=== PATIENT | female | born 1955 | race Caucasian/White ===

== ENCOUNTER 2020-06-08 10:10 | Emergency (ER) | payer OTHER ==
[2020-06-08 10:17] VITALS: BP 122/65; PULSE 56; TEMP 98.5; BMI 31.5
--- NOTE | 2020-06-08 11:07 | PDOC ---
History of Present Illness - General Chief Complaint: Pain Stated Complaint: SENT BY DOC Time Seen by Provider: 06/08/20 10:50 History Source: Patient Exam Limitations: No Limitations - History of Present Illness Initial Comments: 06/08/20 11:02 65-year-old female presents to the emergency room with complaints of continued right lower extremity discomfort for the past month. Patient denies any specific injury skin discoloration or sensory changes. Patient states has history of arthritis and has been taking Motrin with good effect for the past month. Patient decided go to her PCP yesterday had an x-ray and was told there was a fibular fracture and needed to go to the ER for medical attention. Patient denies worsening pain or radiation of pain but states due to low back pain she has been compensating causing her low back pain especially to the right lower back to increase in severity. Occurred: reports: other (1 month ) Severity: reports: mild Pain Location: reports: lower extremity Method of Injury: Yes: unknown Modifying Factors: improves with: None Associated Symptoms (Fall): trouble walking Past History - Travel History Traveled outside of the country in the last 30 days: No Close contact w/someone who was outside of country & ill: No - Medical History Allergies/Adverse Reactions: Allergies Allergy/AdvReac Type Severity Reaction Status Date / Time No Known Allergies Allergy Verified 10/08/16 10:06 Home Medications: Ambulatory Orders Aspirin [Aspirin EC] 81 mg PO DAILY 10/08/16 Docusate Sodium [Dok] 100 mg PO DAILY 10/08/16 Gabapentin [Neurontin] 300 mg PO Q8H 10/08/16 Hydroxychloroquine So4 [Plaquenil -] 200 mg PO DAILY 10/08/16 Lisinopril 5 mg PO DAILY 10/08/16 Mv-Min/Folic/Vit K/Lycop/Coq10 [Daily Multivitamin Capsule] 1 each PO DAILY 10/08/16 Omeprazole 20 mg PO DAILY 10/08/16 Anemia: No Asthma: No Cancer: No Cardiac Disorders: No CVA: No COPD: No CHF: No Dementia: No Diabetes: No GI Disorders: Yes Disorders: No HTN: Yes Hypercholesterolemia: No Liver Disease: No Seizures: No Thyroid Disease: No - Surgical History Abdominal Surgery: Yes (HERNIA) Appendectomy: Yes - Psycho-Social/Smoking History Patient Lives Alone: No Lives with/in: spouse/SO Smoking History: Never smoked Have you smoked in the past 12 months: No If you are a former smoker, when did you quit?: 2005 Information on smoking cessation initiated: No - Substance Abuse Hx (Audit-C & DAST Scrn) How often the patient has a drink containing alcohol: Never Score: In Men: 4 or > Positive; In Women: 3 or > Positive: 0 Screen Result (Pos requires Nsg. Audit-10AR): Negative Review of Systems - Review of Systems Able to Perform ROS?: No Is the patient limited Portuguese proficient: No Constitutional: No: Symptoms Reported Musculoskeletal: Yes: Joint Pain (rt ankle) Integumentary: No: Symptoms Reported Neurological: No: Tingling Hematologic/Lymphatic: No: Symptoms Reported *Physical Exam - Vital Signs Last Vital Signs Temp Pulse Resp BP Pulse Ox 98.5 F 56 L 17 122/65 99 06/08/20 10:12 06/08/20 10:12 06/08/20 10:12 06/08/20 10:12 06/08/20 10:12 - Physical Exam General Appearance: Yes: Nourished, Appropriately Dressed. No: Apparent Distress HEENT: negative: Pale Conjunctivae Neck: positive: Supple Respiratory/Chest: positive: Lungs Clear, Normal Breath Sounds. negative: Respiratory Distress, Accessory Muscle Use Cardiovascular: positive: Regular Rhythm, Regular Rate. negative: Murmur Gastrointestinal/Abdominal: positive: Soft. negative: Tenderness Extremity: positive: Tender (right lower extremity over the lateral aspect of malleolus) Integumentary: positive: Normal Color, Warm, Moist Neurologic: positive: Normal Mood/Affect Procedures - Splinting Splint Location: Right: Ankle Pre-Proc Neuro Vasc Exam: normal Hand-Made Type: orthoglass Splint Type: Yes: Sugar Tong, Posterior Post-Proc Neuro Vasc Exam: normal Noe Bandage: 4" Complications: No Good repositioning: Yes ED Treatment Course - RADIOLOGY Radiology Studies Ordered: Category Date Time Status LEG TIB/FIB-RIGHT [RAD] Stat Radiology 06/08/20 10:54 Ordered Medical Decision Making - Medical Decision Making 06/08/20 11:06 Chief complaint: Continue right lower extremity discomfort denies specific injury has history of arthritis and herniated disks of the lumbar spine. Exam: Patient with limited range of motion with flexion and dorsiflexion of the right ankle with point tenderness to the lateral aspect of right malleolus and extending proximately. Extremity warm 2+ pulses. Plan: X-ray to visualize specific injury/fracture 06/08/20 11:50 patient with noted nondisplaced right fibular shaft fracture. Area splinted with a sugar tong and posterior short leg. Patient able to use crutches and will receive referral to Dr. Hwang. Discharge - Discharge Information Problems reviewed: Yes Clinical Impression/Diagnosis: Fracture, fibula, shaft Condition: Good Disposition: HOME - Follow up/Referral Referrals: Prudencio Hwang MD [Staff Physician] - - Patient Discharge Instructions Patient Printed Discharge Instructions: Fibula Shaft Fracture Additional Instructions: Avoid placing weight onto the right lower extremity using your crutches as needed for ambulation. Elevate your leg when not ambulating. Follow-up with orthopedist take Motrin for discomfort - Post Discharge Activity
== END 2020-06-08 12:00 | disposition home or self-care (01) ==
LOC: JERFT 10:10
DX: S82.401A Unspecified fracture of shaft of right fibula, initial encounter for closed fracture (principal)
CPT/HCPCS: 73590-TC-RT-FY; 99283-25

== ENCOUNTER 2025-02-01 05:30 | Day surgery (SDC) | payer OTHER ==
[2025-01-30 10:49] VITALS: BMI 29.7
[2025-02-01] MEDS ORDERED: LIDOCAINE HCL 1%, 10 MG/ML (20ML VIAL) ONE (10:50)
[2025-02-01] MEDS ORDERED: MIDAZOLAM HCL 2 MG/2 ML SINGLE DOSE VIAL ONE (11:01)
[2025-02-01] MEDS: ceFAZolin SODIUM 1 GM VIAL IVPB ONE (11:10)
[2025-02-01] MEDS ORDERED: HYDROmorphone HCl 2 MG/ML VIAL ONE (11:29)
[2025-02-01 14:02] VITALS: TEMP 97
[2025-02-01] MEDS ORDERED: oxyCODONE HCL 5 MG TABLET ONE (14:03)
[2025-02-01] MEDS: oxyCODONE HCL 5 MG TABLET PO ONE (14:04)
[2025-02-01 15:11] VITALS: RESP 20
[2025-02-01 16:21] VITALS: BP 150/70; PULSE 64
== END 2025-02-01 16:21 | disposition home or self-care (01) ==
LOC: JASU-SURG 05:30
PROVIDERS: ATTEND Urology
PROC: 0TSC0ZZ Reposition Bladder Neck, Open Approach (ICD-10-PCS; principal; 2025-02-01 12:30)
DX: N39.3 Stress incontinence (female) (male) (principal); N81.10 Cystocele, unspecified
CPT/HCPCS: 57288; A4565; 82962; 94760; C1771